=== PATIENT | male | born 1985 | race Caucasian/White ===

== ENCOUNTER 2024-02-09 18:41 | Emergency (ER) | payer BC, SELFPAY ==
[2024-02-09 19:25] VITALS: BP 155/97; PULSE 65; RESP 18; TEMP 36.5; O2SAT 96; BMI 41.5
--- NOTE | 2024-02-09 19:34 | ECG_ITS ---
APPROVED REPORT Exam: Resting ECG HR:57 bpm ECG Measurements Heart Rate 57 AXES IL 188 P 8 QRSd 100 QRS 50 QT 418 T 30 QTc 413 Conclusion SINUS BRADYCARDIA BORDERLINE ECG Electronically signed by : DONY SINCLAIR, 02/10/2024 00:35:50
--- NOTE | 2024-02-09 19:38 | EXP.UTC ---
Discharge Plan Disposition Patient Disposition: Home, Self-Care Condition: Good Prescriptions Prescriptions: New prednisone 20 mg tablet 20 mg PO BID 5 Days Qty: 10 0RF albuterol sulfate [Ventolin HFA] 90 mcg/actuation HFA aerosol inhaler 2 puffs inhalation QIDP PRN (Reason: Wheezing) 30 Days Qty: 1 0RF amoxicillin-pot clavulanate 875-125 mg Tablet 1 tab PO Q12H Qty: 20 0RF No Action atorvastatin 40 mg tablet 40 mg PO DAILY Patient Comments: TAKE 1 TABLET BY MOUTH DAILY escitalopram oxalate 10 mg tablet 10 mg PO DAILY varenicline 0.5 mg (11)- 1 mg (42) tablets,dose pack See Rx Instructions .ROUTE .COMPLEX Patient Comments: FOLLOW PACKAGE DIRECTIONS Rx Instructions: see rx directions Referrals Follow up/Referrals: Bharat Milan II, [Primary Care Provider] - See instructions Clinical Impressions Clinical Impression: Bilateral otitis media Instructions Patient Instructions: DI for Otitis Media (Middle Ear Infection)-Child Discharge ED Provider: Sharlene Jacob [facility] [place] Stated complaint: Weakness,Ringing in ears,chest congestion Time Seen by Provider: 02/09/24 19:45 History of Present Illness Provider Complaint: Bilateral ringing in ears, congestion, shortness of breath, coughing, tingling. Has tightness in chest. Has felt bad for about a month. Took Zpack, prednisone and felt a little better. Quit smoking 1 week ago. Used Chantix but stopped that 2 days ago. Feels like he can't get a good breath at times. Onset (ago): month(s) Location: chest Relieving factors: none Exacerbating factors: none Associated symptoms: denies other symptoms Treatments prior to arrival: none Related Data Home Medications Medication Instructions Recorded Confirmed atorvastatin 40 mg tablet 40 mg PO DAILY 02/09/24 02/09/24 escitalopram oxalate 10 mg tablet 10 mg PO DAILY 02/09/24 02/09/24 varenicline 0.5 mg (11)-1 mg (42) See Rx Instructions .Route .COMPLEX 02/09/24 02/09/24 tablets in a dose pack Previous Rx's Medication Instructions Recorded albuterol sulfate 90 mcg/actuation 2 puffs inhalation QIDP PRN 02/09/24 aerosol inhaler (Ventolin HFA) Wheezing 30 days #1 ea amoxicillin 875 mg-potassium 1 tab PO Q12H #20 tabs 02/09/24 clavulanate 125 mg tablet prednisone 20 mg tablet 20 mg PO BID 5 days #10 tabs 02/09/24 Allergies Allergy/AdvReac Type Severity Reaction Status Date / Time No Known Allergies Allergy Verified 02/09/24 19:42 [facility] Disclaimer: The information contained in this section may have been updated after the patient was seen, as this information can be updated by other users. Social History Smoking Status: Former smoker alcohol intake: current current occupational status: employed Travel in the last 8 weeks: None ROS Obtained: Yes All systems reviewed & no additional complaints except as documented ENT Ears, Nose, Mouth, and Throat: Reports dizziness, Reports nasal congestion and Reports tinnitus Respiratory Respiratory: Reports cough Neurologic Neurologic: Reports dizziness Physical Exam General General appearance: alert and in no apparent distress Head Head exam: atraumatic, normocephalic and normal inspection Eye Eye exam: Present normal appearance, PERRL and EOMI ENT ENT exam: Present normal exam, normal oropharynx, mucous membranes moist and normal external ear exam Expanded ENT Exam TM/Canal exam: Bilateral TM: erythema and bulging Neck Neck exam: Present normal inspection, full ROM and trachea midline; Absent meningismus or lymphadenopathy Chest Chest inspection: Present normal inspection and symmetric chest wall rise; Absent tenderness Respiratory Respiratory exam: Present normal lung sounds bilaterally; Absent respiratory distress Cardiovascular Cardiovascular exam: Present regular rate and normal rhythm; Absent JVD Abdominal Exam Abdominal exam: Present soft and normal bowel sounds; Absent distention, tenderness or guarding Extremities Exam Extremities exam: Present normal inspection, full ROM and normal capillary refill; Absent calf tenderness Back Exam Back exam: Present normal inspection; Absent tenderness Neurological Exam Neurological exam: Present alert and oriented X3 Psychiatric Psychiatric exam: Present normal affect and normal mood Skin Skin exam: Present warm, dry, intact and normal color Lymphatic Lymphatic Findings: no adenopathy Medical Decision Making Jerome Inquiry Pt receiving controlled substance: No ECG Data Tracing #1: I reviewed this ECG and interpreted as documented below: sinus bradycardia ECG initial impression date: 02/09/24 ECG initial impression time: 19:35 Arrhythmias present: sinus elida
[2024-02-09 20:16] VITALS: BP 155/97; PULSE 65; RESP 18; TEMP 36.5; O2SAT 96
== END 2024-02-09 20:16 | disposition home or self-care (01) ==
PROVIDERS: Emergency Provider Physician Assistant; PCP Student in an Organized Health Care Education/Training Program
DX: H66.93 Otitis media, unspecified, bilateral (principal); R06.02 Shortness of breath; R00.1 Bradycardia, unspecified; R05.9 Cough, unspecified; R09.81 Nasal congestion; R53.1 Weakness; Z87.891 Personal history of nicotine dependence
CPT/HCPCS: 93005; 99204; 99212; G0463

== ENCOUNTER 2024-02-13 13:17 | Emergency (ER) | payer BC, SELFPAY ==
[2024-02-13 13:25] VITALS: BP 158/67; PULSE 74; RESP 18; TEMP 36.8; O2SAT 96; BMI 41.5
--- NOTE | 2024-02-13 14:15 | EXP.UTC ---
Discharge Plan Disposition Patient Disposition: Home, Self-Care Condition: Good Prescriptions Prescriptions: New ofloxacin 0.3 % drops 10 drp otic (ear) Q12H 14 Days Qty: 20 0RF Rx Instructions: right ear as directed fluticasone propionate [Flonase Allergy Relief] 50 mcg/actuation spray,suspension 2 spray intranasal DAILY Qty: 16 0RF Rx Instructions: administer into each nostril daily No Action atorvastatin 40 mg tablet 40 mg PO DAILY Patient Comments: TAKE 1 TABLET BY MOUTH DAILY escitalopram oxalate 10 mg tablet 10 mg PO DAILY varenicline 0.5 mg (11)- 1 mg (42) tablets,dose pack See Rx Instructions .ROUTE .COMPLEX Patient Comments: FOLLOW PACKAGE DIRECTIONS Rx Instructions: see rx directions prednisone 20 mg tablet 20 mg PO BID 5 Days Qty: 10 0RF albuterol sulfate [Ventolin HFA] 90 mcg/actuation HFA aerosol inhaler 2 puffs inhalation QIDP PRN (Reason: Wheezing) 30 Days Qty: 1 0RF amoxicillin-pot clavulanate 875-125 mg Tablet 1 tab PO Q12H Qty: 20 0RF Referrals Follow up/Referrals: Brenda Segundo APRN [Nurse Practitioner] - See instructions (call office for appointment if ringing in ears continue) Bharat Milan II, [Primary Care Provider] - See instructions (follow up tomorrow as scheduled) Activity Restrictions/Add. Instructions Additional Instructions/Restrictions: Continue antibitics as prescribed Follow up with your Family Doctor tomorrow as scheduled Call and make appointment with ENT Use ear drops as prescribed Use flonase as prescribed Straight to ER if any life threateing symptoms Clinical Impressions Clinical Impression: Ringing in ear Qualifiers: Laterality: right Qualified Code(s): H93.11 - Tinnitus, right ear Instructions Patient Instructions: Ear Infections (Alternative Therapy), Tinnitus (Alternative Therapy), Tinnitus (Alternative Therapy), Ringing in the Ears, DI for Tinnitus Discharge ED Provider: Ronda Liu [facility] General Stated complaint: ringing in right ear, weakness Mode of Arrival: Ambulatory Source of Information: Patient Limitations: No Limitations Time Seen by Provider: 02/13/24 14:15 Description of Symptoms (Recalled from Triage Doc. by RN): Pt's symptoms are fatigue, ringing in ears, anxious, diarrhea, and nasuea. Was seen on monday. This has been going on a month. HEENT Symptoms (Recalled from RN notes): Yes Resp Symptoms (Recalled from RN notes): No Skin Symptoms (Recalled from RN notes): No MS Symptoms (Recalled from RN notes): No Functional Status (Recalled from RN notes): n/a History of Present Illness Provider Complaint: Patient states that he was seen on Monday and started on antibiotics and steroids' States that he is still having ringing in his ears, feeling fatigued, anxious, diarrhea and nausea States that ringing in his ears has continued and loud states Related Data Home Medications Medication Instructions Recorded Confirmed atorvastatin 40 mg tablet 40 mg PO DAILY 02/09/24 02/13/24 escitalopram oxalate 10 mg tablet 10 mg PO DAILY 02/09/24 02/13/24 varenicline 0.5 mg (11)-1 mg (42) See Rx Instructions .Route .COMPLEX 02/09/24 02/13/24 tablets in a dose pack Previous Rx's Medication Instructions Recorded albuterol sulfate 90 mcg/actuation 2 puffs inhalation QIDP PRN 02/09/24 aerosol inhaler (Ventolin HFA) Wheezing 30 days #1 ea amoxicillin 875 mg-potassium 1 tab PO Q12H #20 tabs 02/09/24 clavulanate 125 mg tablet prednisone 20 mg tablet 20 mg PO BID 5 days #10 tabs 02/09/24 fluticasone propionate 50 2 spray intranasal DAILY #16 grams 02/13/24 mcg/actuation nasal spray,suspension (Flonase Allergy Relief) ofloxacin 0.3 % ear drops 10 drp otic (ear) Q12H 14 days #20 02/13/24 mL Allergies Allergy/AdvReac Type Severity Reaction Status Date / Time No Known Allergies Allergy Verified 02/13/24 13:35 Worker's Comp Is this a Worker's Comp case?: No [facility] Disclaimer: The information contained in this section may have been updated after the patient was seen, as this information can be updated by other users. Social History (Updated 02/09/24 @ 19:51 by HUYEN Quiroz) Smoking Status: Former smoker alcohol intake: current current occupational status: employed Travel in the last 8 weeks: None ROS Obtained: Yes All systems reviewed & no additional complaints except as documented and Yes Systems reviewed as appropriate & no additional complaints except as documented Constitutional Constitutional: Reports system reviewed and no additional complaints, except as documented, Reports as per HPI, Reports fatigue and Reports headache(s) Eyes Eyes: Reports system reviewed and no additional complaints, except as documented, Reports as per HPI and Denies loss of vision ENT Ears, Nose, Mouth, and Throat: Reports system reviewed and no additional complaints, except as documented, Reports as per HPI, Denies disequilibrium, Denies dizziness, Reports otalgia, Reports headache(s) and Reports other (ringing in his ears) Cardiovascular Cardiovascular: Reports system reviewed and no additional complaints, except as documented and Reports as per HPI Respiratory Respiratory: Reports system reviewed and no additional complaints, except as documented and Reports as per HPI Gastrointestinal Gastrointestingal: Reports system reviewed and no additional complaints, except as documented, as per HPI and nausea Genitourinary Male Genitourinary: Reports system reviewed and no additional complaints, except as documented and Reports as per HPI Musculoskeletal Musculoskeletal: Denies abnormal gait Neurologic Neurologic: Reports system reviewed and no additional complaints, except as documented, Reports as per HPI, Denies abnormal gait, Denies abnormal speech, Denies confusion, Denies disequilibrium, Denies dizziness, Reports headache(s), Denies lack of coordination, Denies loss of vision, Denies memory loss, Denies other visual disturbances and Reports other (ringing in ears and feeling anxious at times) Endocrine Endocrine: Reports fatigue Physical Exam General General appearance: alert and in no apparent distress ENT ENT exam: Present mucous membranes moist Expanded ENT Exam TM/Canal exam: Bilateral TM: erythema (worse on right ) and bulging Throat exam: Present other (mild pharyngeal erythema noted ) Respiratory Respiratory exam: Present normal lung sounds bilaterally; Absent respiratory distress or wheezes Cardiovascular Cardiovascular exam: Present regular rate, normal rhythm and normal heart sounds Neurological Exam Neurological exam: Present alert, oriented X3 and normal gait Psychiatric Psychiatric exam: Present normal affect and normal mood; Absent depressed, agitated, anxious, flat affect, manic, homicidal ideation or suicidal ideation Skin Skin exam: Present warm, dry and intact Medical Decision Making Jerome Inquiry Pt receiving controlled substance: No Jerome was queried for this patient: No Vital Signs: 02/13/24 13:25 Temperature 98.2 F Temperature Source Oral Pulse Rate [Right Radial] 74 Respiratory Rate 18 Blood Pressure [Right Arm] 158/67 H Blood Pressure Mean [Right Arm] 97 Blood Pressure Source [Right Arm] Automatic Cuff Blood Pressure Position [Right Arm] Sitting 02 Sat by Pulse Oximetry 96 Oxygen Delivery Method Room Air Medical Decision Narrative: Spoke with [facility] and patient was given appointment for tomorrow, Spoke with ENT recommended adding Ofloxacin ear drops and flonase and have him call office for appointment in a couple of weeks if no improvement after infection is cleared Discussed with patient that ringing in ears may continue until infection in ear is cleared and to continue antibiotics and add ear drops and flonase Patient also educated that Prednisone may make you feel anxious and a little shaky but if any of these symptoms worsen was given strict return instructions to the ED
[2024-02-13 15:04] VITALS: BP 158/67; PULSE 74; RESP 18; TEMP 36.8; O2SAT 96
== END 2024-02-13 15:04 | disposition home or self-care (01) ==
PROVIDERS: Emergency Provider Nurse Practitioner; PCP Student in an Organized Health Care Education/Training Program
DX: H93.11 Tinnitus, right ear (principal); R53.83 Other fatigue
CPT/HCPCS: 99212; 99214; G0463